=== PATIENT | female | born 1995 | race American Indian/Alaskan Native ===

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

== ENCOUNTER 2017-12-22 22:20 | Outpatient (CLI) | payer MEDICAID ==
[2017-12-22 22:47] VITALS: BP 111/70
[2017-12-22] MEDS ORDERED: LACTATED RINGERS 1,000 ML IV ONE (22:58)
[2017-12-22 23:50] LABS: Bacteria,Urine 2+ /HPF (Negative); Bilirubin,Urine NEG (Negative); Blood,Urine NEG (Negative); Mucus,Urine FEW /HPF; Protein,Urine <15 mg/dL mg/dL (Negative)
[2017-12-22 23:57] LABS: Color,Urine Yellow (Yellow)
--- NOTE | 2017-12-23 00:30 | Ultrasound Report ---
FINAL REPORT PROCEDURE: US OB LIMITED TECHNIQUE: Real-time limited sonographic examination was performed for evaluation of size, position, heartbeat, fluid volume for each fetus with image documentation (1 or more fetuses). CPT 48156 HISTORY: Visualize placenta, vaginal bleeding, presentation COMPARISON: No prior studies are available for comparison. FINDINGS: Fetus is in a cephalic presentation. The placenta is fundal and grade 2. There is no previa or abruption. The heart rate is 148 beats per minute. IMPRESSION: Fetus is in a cephalic presentation. The placenta is fundal and grade 2. There is no previa or abruption. The heart rate is 148 beats per minute.
== END 2017-12-23 00:37 | disposition home or self-care (01) ==
LOC: TRG 22:20
PROVIDERS: ATTEND Obstetrics & Gynecology
DX: O46.93 Antepartum hemorrhage, unspecified, third trimester (principal); Z3A.36 36 weeks gestation of pregnancy
CPT/HCPCS: 59025; 76815; 81001